=== PATIENT | female | born 1970 | race Caucasian/White ===

== ENCOUNTER → 2017-01-10 | Outpatient (CLI) | payer BC ==
--- NOTE | ~2017-01-10 | BD1 ---
[facility] A Service of [facility] & [facility] RADIOLOGY TEXT RESULTS PATIENT: DUSTIN BURGOS [facility] : 66 UNIT #: [id number] AGE: [address]: Jolynn Cradnall APRN SEX: F ORDER DR: [id number] [address] [address] [id number] O MR#: [id number] Acc #: [id number] NAME: DUSTIN BURGOS : 1970 SEX: F STUDY DATE/TIME: 01/10/2017 8:12 UNIT: [facility] ROOM: STUDY DESCRIPTION: Dexa Bone Dens 1+ Site Attending Physician: Jolynn Crandall A.P.R.N. Referring Physician: Jolynn Crandall A.P.R.N. Ordering Physician: Jolynn Crandall A.P.R.N. Primary Care Physician: Jolynn Crandall A.P.R.N. MEDICAL IMAGING REPORT This report is preliminary unless electronic signature is present. EXAM DXA scan, 01/10/2017. HISTORY Status post menopause with no hormone replacement therapy. Osteopenia. Thyroid medication Synthroid use for 4 years. Family history of osteoporosis in mother. Smoking history for 6 years. FINDINGS Bone mineral density in the lumbar spine from L1 through L4 is 1.093 g/cm2 which is 0.7 standard deviations below the mean when compared to the young adult reference population which is within the range of normal. This is 0.7 standard deviations below the mean when compared to the age-matched population. Bone mineral density in the left femoral neck was 0.785 g/cm2 which is 1.8 standard deviations below the mean when compared to the young adult reference population which is characteristic of osteopenia. This is 1.3 standard deviations below the mean when compared to the age-matched population. Bone mineral density in the right femoral neck was 0.846 g/cm2 which is 1.4 standard deviations below the mean when compared to the young adult reference population which is characteristic of osteopenia. This is 0.8 standard deviations below the mean when compared to the age-matched population. IMPRESSION Bone mineral density in the lumbar spine within the range of normal and within the hips bilaterally characteristic of osteopenia. Dictated by... Ghassan Cook M.D. THIS IS AN ELECTRONICALLY VERIFIED REPORT [facility] A Service of [facility] & [facility] RADIOLOGY TEXT RESULTS PATIENT: DUSTIN BURGOS LOCATION: [facility] #: [id number] : 66 UNIT #: [id number] AGE: [address]: Jolynn Crandall APRN SEX: F ORDER DR: Ghassan Cook M.D. at 01/11/2017 7:24 AM ROLO/destiny TD: 01/10/2017 22:10 JOB #: [id number] MEDICAL IMAGING REPORT Page 1 of 1
--- NOTE | ~2017-01-10 | US128 ---
[id number] [address] [id number] O MR#: [id number] Acc #: [id number] NAME: DUSTIN BURGOS : 1970 SEX: F STUDY DATE/TIME: 01/10/2017 8:20 UNIT: [facility] ROOM: STUDY DESCRIPTION: Thyroid Attending Physician: Jolynn Crandall A.P.R.N. Referring Physician: Jolynn Crandall A.P.R.N. Ordering Physician: Jolynn Crandall A.P.R.N. Primary Care Physician: Jolynn Crandall A.P.R.N. MEDICAL IMAGING REPORT This report is preliminary unless electronic signature is present. EXAM Thyroid sonogram. CLINICAL HISTORY Thyroidectomy October 2012, postoperative hypothyroidism. FINDINGS High-resolution scanning of the thyroid bed demonstrates no significant residual thyroid tissue. No mass lesion is identified. Visualized vascular structures are unremarkable. IMPRESSION No significant residual thyroid tissue identified in this patient with history of thyroidectomy. No mass lesion identified. Dictated by... Mikaela Vasquez M.D. THIS IS AN ELECTRONICALLY VERIFIED REPORT Mikaela Vasquez M.D. at 01/12/2017 7:55 AM ELAINE/edgar TD: 01/11/2017 22:18 JOB #: [id number] MEDICAL IMAGING REPORT Page 1 of 1
== END | disposition home or self-care (01) ==
LOC: SRAD 08:03
DX: M85.80 Other specified disorders of bone density and structure, unspecified site (principal); E89.0 Postprocedural hypothyroidism; Z78.0 Asymptomatic menopausal state
CPT/HCPCS: 76536; 77080